=== PATIENT | male | born 1955 | race Caucasian/White ===

== ENCOUNTER 2025-08-13 12:42 | Day surgery (SDC) | payer MEDICARE, BC, SELFPAY ==
--- NOTE | 2025-08-10 08:30 | P.HP_ITS ---
History of Present Illness *Admission Date: 08/13/25 *History of present illness: Mr. Collazo is a 70-year-old gentleman who is here for screening/surveillance colonoscopy. The patient did have a colonoscopy in November 2019 and had 4 polyps (tubular adenomas x 2 and mucosal prolapse polyps x 2) which were removed . The patient did have a colonoscopy 20 years ago which was normal. He reports no abdominal pain, weight loss, change in his bowel habits or rectal bleeding. He reports no family history of colon cancer. His father had prostate cancer. The examination is deemed medically necessary for screening/surveillance colonoscopy. The patient has been seen, interviewed and examined prior to the procedure by both myself and the anesthesia provider. [facility] Disclaimer: The information contained in this section may have been updated after the patient was seen, as this information can be updated by other users. Surgical History (Updated 08/13/25 @ 13:02 by Marycruz Pink RN) Hx of colonoscopy Hx of shoulder surgery Hx of knee surgery Family History Other No significant family history Social History Smoking Status: Former smoker alcohol intake: never current occupational status: employed Travel in the last 8 weeks?: None caffeine: Yes Have you lived/traveled outside [place] in past 30 days?: No Contact w/someone who lives/traveled outside [place] past 30 days?: No Exposure to someone with infectious disease in past 14 days?: No Do you have a fever (greater than 100.4 F or 38 C)?: No Have you tested positive for COVID-19?: No Exposed to someone with COVID-19 in past 14 days?: No Do you have a sore throat?: No Do you have a cough?: No Do you have any weakness?: No Are you experiencing any nausea/vomitting?: No Do you have any diarrhea?: No Are you experiencing any unusual bleeding?: No Do you have any muscle aches/pain?: No Do you have any abdominal pain?: No Are you experiencing loss of taste or smell?: No Review of Systems Review of Systems Review of systems (narrative): Negative *Cardiovascular Comments: Negative *Gastrointestinal Comments: Negative *Genitourinary Comments: Negative *Musculoskeletal Comments: Negative *Neurologic Comments: Negative Meds Home Medications and Allergies Home Medications ?Medication ?Instructions ?Recorded ?Confirmed ?Type No Known Home Medications 08/13/2507/17 History New Prescriptions to Start Prescriptions: Allergies Allergy/AdvReac Type Severity Reaction Status Date / Time Penicillins (PCN) Allergy Hives Verified 08/13/25 13:00 Exam *Routine HEENT Exam Head: Present normocephalic Eye: Present EOMI and PERRL ENT: Present mucous membranes moist *Routine Neck Exam Neck: Present supple *Routine Respiratory Exam Respiratory: Present CTA bilaterally *Routine Cardiovascular Exam Cardiovascular: Present RRR *Routine Abdominal Exam Abdominal: Present soft and normoactive bowel sounds; Absent tenderness *Routine Rectal Exam Rectal:: deferred *Routine Genitalia Exam Genitalia:: deferred *Routine Extremities Exam Extremities: Absent cyanosis, clubbing or edema *Routine Skin Exam Skin: Present warm; Absent rash *Routine Neurological Exam Neurological: Present alert and oriented X3 Assessment and Plan *Assessment and plan (1) Personal history of adenomatous and serrated colon polyps: Status: Acute Category: Medical Code(s): Z86.0101 - Personal history of adenomatous and serrated colon polyps (2) Screening for colon cancer: Status: Acute Category: Medical Code(s): Z12.11 - Encounter for screening for malignant neoplasm of colon Plan A/P: 1. Personal history of adenomatous colon polyps is the preprocedural diagnosis. The patient will be anesthetized/sedated using MAC sedation. The patient has been seen and examined. Cardiac and lung assessment prior to the examination is stable. Proceed with planned screening/surveillance colonoscopy.
[2025-08-10 09:34] VITALS: BMI 25.7
--- NOTE | 2025-08-13 07:09 | HMH.PROCNOTE ---
[facility] Procedure Note Date: 08/13/25 Time: 13:49 Procedure Note:: Colonoscopy Procedure Report: Colonoscopy with cold snare polypectomy Endoscopist: Abilio King II, MD Referring physician: Lucio Barker MD, [address] [place] [id number] Date of Procedure: August 13, 2025 Equipment: Olympus [id number] adult colonoscope Sedation: MAC sedation Indication: Mr. Collazo is a 70-year-old gentleman who is here for screening/surveillance colonoscopy. The patient did have a colonoscopy in November 2019 and had 4 polyps (tubular adenomas x 2 and mucosal prolapse polyps x 2) which were removed. The patient did have a colonoscopy 20 years ago which was normal. He reports no abdominal pain, weight loss, change in his bowel habits or rectal bleeding. He reports no family history of colon cancer. The patient has had some iron deficiency with borderline anemia. He is on iron. His father had prostate cancer. The examination is deemed medically necessary for screening/surveillance colonoscopy. Procedure: Prior to the procedure, a history and physical exam was performed, and patient's medications and allergies were reviewed. The risks, benefits and alternatives of the sedation and procedure were discussed with the patient. All questions were answered and informed consent was obtained. The patient was brought to the procedure room. Patient identification and proposed procedure were verified by the physician and the nurse. The patient was placed in a left lateral decubitus position and the scope was passed under direct vision. Throughout the procedure, the patient's blood pressure, pulse, and oxygen saturations were monitored continuously. The colonoscopy was accomplished without difficulty. The patient tolerated the procedure well. Findings: On digital rectal examination there was normal rectal tone. There were no external hemorrhoids. The prostate was 2+, mildly firm but symmetric without nodules. The colonoscope was introduced through the anal canal to the rectum and advanced to the cecum. The ileocecal valve and appendiceal orifice were identified. The scope was advanced a short distance into the ileum which appeared grossly normal. The scope was then withdrawn into the colon. There were 2 diminutive polyps (cecum x 1 (4 mm) and sigmoid x 1 (3 mm)). Both of these were removed via cold snare polypectomy. The remaining cecum, ascending and transverse colon and mucosa were grossly normal. There were scattered diverticuli throughout the descending and sigmoid colon (LEFT colon). The rectum itself was normal. Upon retroflexion within the rectum there were grade 2 internal hemorrhoids. The preparation was excellent throughout with [place] Preparation Score of 9. The cecal time was 12 minutes. Impression: 1. Diminutive colonic polyps x 2 2. Left-sided diverticulosis 3. Grade 2 internal hemorrhoids Plan: I will follow-up the polyp histology and recommend repeat screening/surveillance colonoscopy again in 7 years. I would encourage psyllium bulking fiber supplementation. I will also recommend Hemoccult testing along with repeating CBC and iron studies.
[2025-08-13 12:56] VITALS: BP 100/70; PULSE 55; RESP 16; TEMP 36.4; O2SAT 98
[2025-08-13] MEDS: LACTATED RINGERS 1000ML 1,000 ML 50 ML IV (13:09)
--- NOTE | 2025-08-13 13:21 | EXP.ANES.CKL ---
[facility] Disclaimer: The information contained in this section may have been updated after the patient was seen, as this information can be updated by other users. Surgical History (Updated 08/13/25 @ 13:02 by Marycruz Pink RN) Hx of colonoscopy Hx of shoulder surgery Hx of knee surgery Family History Other No significant family history Social History Smoking Status: Former smoker alcohol intake: never substance use type: denies use current occupational status: employed Travel in the last 8 weeks?: None caffeine: Yes [facility] Anesthesia Checklist Patient Identification Patient Identification: Arm Band and Family Structural Data Admitted From: Home Planned Operative Procedure/s: colonoscopy Consent for Planned Operative Procedure(s) Verified: Yes Verified Documents: Surgical Consent and History and Physical NPO Status Verified Time NPO: 00:00 Additional verifications Patient : No Anesthesia Reactions: No Hx Blood Transfusions: No Blood Transfusion Reaction: No Cephalosporin Allergy: No Previous Colonoscopy: Yes Airway Assessment Mallampati Score:: Class I C-Spine Mobility Assessed: Yes Dentition: Good Dentition Neurological Assessment Level of Consciousness: Awake, Alert, Appropriate and Follows Commands Hx Seizures: No Numbness or tingling in extremities: No Anesthesia Plan Anesthesia Risk discussed: Yes ASA Class: I Anesthesia Type: MAC
[2025-08-13 13:52] VITALS: BP 104/64; PULSE 58; RESP 18; TEMP 36.2; O2SAT 95
[2025-08-13 14:02] VITALS: BP 89/49; PULSE 51; RESP 18; O2SAT 95
[2025-08-13 14:12] VITALS: BP 90/48; PULSE 53; RESP 18; O2SAT 98
[2025-08-13 14:17] LABS: Hematocrit 40.3 % (42.0-52.0); Hemoglobin 13.8 g/dL (14.1-18.0); Immature Granulocytes % 0.2 %; Mean Corpuscular HGB Conc 34.2 g/dL (31.8-35.4); Mean Corpuscular Hemoglobin 30.8 pg (27.0-31.2); Mean Corpuscular Volume 90.0 fl (80-94); Nucleated Red Blood Cells % 0 %; Platelet Count 178 K/mm3 (142-424); Red Blood Count 4.48 M/mm3 (4.60-6.20); Red Cell Distribution Width-SD 43.4 fL; White Blood Count 4.0 K/mm3 (4.8-10.8)
[2025-08-13 14:22] VITALS: BP 95/56; PULSE 60; RESP 16; O2SAT 97
[2025-08-13 23:02] LABS: Iron 73 ug/dL (49-181)
[2025-08-13 23:12] LABS: Total Iron Binding Capacity 287 ug/dL (261-462)
[2025-08-13 23:40] LABS: Ferritin 134 ng/ml (17.9-464)
[2025-08-14 14:20] LABS: Deamidated Gliadin Abs, IgA 2 units (0-19); Deamidated Gliadin Abs, IgG 2 units (0-19)
== END 2025-08-13 14:30 | disposition home or self-care (01) ==
PROVIDERS: PCP Emergency Medicine; Visit Provider Internal Medicine Gastroenterology
PROC: 0DJD8ZZ Inspection of Lower Intestinal Tract, Via Natural or Artificial Opening Endoscopic (ICD-10-PCS; CPT 45378; principal; 2025-08-13 14:30)
DX: Z12.11 Encounter for screening for malignant neoplasm of colon (principal); D12.0 Benign neoplasm of cecum; D12.5 Benign neoplasm of sigmoid colon; K57.30 Diverticulosis of large intestine without perforation or abscess without bleeding; K64.1 Second degree hemorrhoids; Z86.0101 Personal history of adenomatous and serrated colon polyps; Z87.891 Personal history of nicotine dependence; Z88.0 Allergy status to penicillin
CPT/HCPCS: 45385; 36415; 82728; 83540; 83550; 85025; 86231; 86258; 86364; J2003; J2704; J7120